=== PATIENT | female | born 1995 | race Caucasian/White ===

== ENCOUNTER 2023-02-16 08:15 | Emergency (ER) | payer BC ==
[2023-02-16] MEDS ORDERED: LACTATED RINGERS SOLUTION 1000 ML INFUS.BAG IV ONE (08:45)
[2023-02-16] MEDS ORDERED: FAMOTIDINE 20 MG/50 ML IVPB 20 MG/50 ML MG IVPB ONE ×2 (08:45→08:58)
[2023-02-16] MEDS ORDERED: ACETAMINOPHEN 1000 MG/100 ML BAG IVPB ONE (08:45)
[2023-02-16] MEDS ORDERED: ONDANSETRON 4 MG/2 ML VIAL IVPUSH ONE ×3 (08:45→14:02)
[2023-02-16] MEDS ORDERED: ACETAMINOPHEN INJECTION 100 ML IVPB ONE (08:58)
[2023-02-16] MEDS ORDERED: ONDANSETRON 4 MG/2 ML VIAL ONE ×2 (08:59→12:28)
[2023-02-16 09:02] VITALS: TEMP 97.9; BMI 30.4
[2023-02-16 09:06] LABS: HCG,QUALITATIVE URINE Negative
[2023-02-16 09:12] LABS: HEMATOCRIT 45.8 % (32.4-45.2); HEMOGLOBIN 15.8 G/dL (10.7-15.3); MCH 30.9 pg (25.7-33.7); MCHC 34.5 g/dl (32.0-36.0); MEAN CELL VOLUME 89.5 fl (80-96); MEAN PLT VOLUME 8.8 fl (7.5-11.1); PLATELET COUNT 200.6 10^3/uL (134-434); RBC 5.12 10^6/uL (3.60-5.2); RDW 13.3 % (11.6-15.6); WHITE BLOOD COUNT 12.1 10^3/uL (4.0-10.8)
[2023-02-16 09:16] LABS: EPITHELIAL CELLS MANY /hpf
[2023-02-16 09:21] LABS: ALBUMIN 4.6 g/dl (3.4-5.0); BLOOD UREA NITROGEN 11.6 mg/dl (7-18); CALCIUM 9.5 mg/dl (8.5-10.1); CREATININE 0.8 mg/dl (0.6-1.3); POTASSIUM 3.7 mmol/L (3.5-5.1); SGOT/AST 16.6 U/L (15-37); SGPT/ALT 28.9 U/L (7-52)
[2023-02-16 09:28] LABS: PLATELET ESTIMATE ADEQUATE
[2023-02-16 10:22] LABS: BILIRUBIN,TOTAL 0.4 mg/dL (0.2-1)
[2023-02-16] MEDS ORDERED: morphine CARPU-JECT 4 MG/1 ML DISP.SYRIN IVPUSH ONE (12:25)
[2023-02-16] MEDS ORDERED: morphine SULFATE 4 MG/ML VIAL ONE (12:27)
[2023-02-16 12:41] VITALS: BP 143/82; PULSE 100; RESP 24
[2023-02-16] MEDS ORDERED: METOCLOPRAMIDE HCL INJECTION 10 MG/2 ML VIAL IVPUSH ONE (14:06)
[2023-02-16] MEDS ORDERED: METOCLOPRAMIDE HCL INJECTION 10 MG/2 ML VIAL ONE (14:15)
== END 2023-02-16 15:38 | disposition home or self-care (01) ==
LOC: FER 08:15
PROC: 3E033GC Introduction of Other Therapeutic Substance into Peripheral Vein, Percutaneous Approach (ICD-10-PCS; principal; 2023-02-16)
PROC: 3E033GC Introduction of Other Therapeutic Substance into Peripheral Vein, Percutaneous Approach (ICD-10-PCS; 2023-02-16)
PROC: 3E033GC Introduction of Other Therapeutic Substance into Peripheral Vein, Percutaneous Approach (ICD-10-PCS; 2023-02-16)
PROC: 3E033GC Introduction of Other Therapeutic Substance into Peripheral Vein, Percutaneous Approach (ICD-10-PCS; 2023-02-16)
PROC: 3E033GC Introduction of Other Therapeutic Substance into Peripheral Vein, Percutaneous Approach (ICD-10-PCS; 2023-02-16)
PROC: 3E033NZ Introduction of Analgesics, Hypnotics, Sedatives into Peripheral Vein, Percutaneous Approach (ICD-10-PCS; 2023-02-16)
DX: R10.11 Right upper quadrant pain (principal); R11.2 Nausea with vomiting, unspecified
CPT/HCPCS: 36415; 74177-TC; 76705-TC; 80053; 81003; 81015; 82962; 83690; 84703; 85027; 87086; 99285-25; Q9967

== ENCOUNTER 2023-02-17 07:45 | Emergency (ER) | payer BC ==
[2023-02-17 08:04] VITALS: RESP 17; BMI 30.4
[2023-02-17] MEDS ORDERED: FAMOTIDINE 10 MG TABLET PO ONE (08:11)
[2023-02-17] MEDS ORDERED: PANTOPRAZOLE 40 MG TABLET PO ONE ×2 (08:11→08:17)
[2023-02-17] MEDS ORDERED: FAMOTIDINE 20 MG TABLET ONE (08:17)
[2023-02-17] MEDS ORDERED: FAMOTIDINE 20 MG TABLET PO ONE (08:17)
[2023-02-17 08:21] VITALS: BP 117/78; PULSE 80; TEMP 98.2
== END 2023-02-17 08:44 | disposition home or self-care (01) ==
LOC: FER 07:45
DX: R10.9 Unspecified abdominal pain (principal); R11.2 Nausea with vomiting, unspecified
CPT/HCPCS: 99283-25

== ENCOUNTER 2023-03-29 09:11 | Day surgery (SDC) | payer BC ==
[2023-03-25 16:18] VITALS: BMI 30.4
[2023-03-29 09:35] VITALS: PULSE 86
[2023-03-29 10:13] VITALS: RESP 18; TEMP 97.7
[2023-03-29 10:49] VITALS: BP 135/81
== END 2023-03-29 10:51 | disposition home or self-care (01) ==
LOC: FASU-ENDO 09:11
PROVIDERS: ATTEND Internal Medicine Gastroenterology
PROC: 0DB78ZX Excision of Stomach, Pylorus, Via Natural or Artificial Opening Endoscopic, Diagnostic (ICD-10-PCS; 2023-03-29)
PROC: 0DB68ZX Excision of Stomach, Via Natural or Artificial Opening Endoscopic, Diagnostic (ICD-10-PCS; 2023-03-29)
PROC: 0DB48ZX Excision of Esophagogastric Junction, Via Natural or Artificial Opening Endoscopic, Diagnostic (ICD-10-PCS; 2023-03-29)
PROC: 0DB98ZX Excision of Duodenum, Via Natural or Artificial Opening Endoscopic, Diagnostic (ICD-10-PCS; principal; 2023-03-29 09:53)
DX: K29.70 Gastritis, unspecified, without bleeding (principal); K20.90 Esophagitis, unspecified without bleeding
CPT/HCPCS: 81025; 88305-TC; 88342-TC

== ENCOUNTER 2023-10-01 07:57 | Emergency (ER) | payer BC ==
[2023-10-01 08:54] VITALS: BP 147/95; PULSE 97; RESP 18; TEMP 97.8; BMI 33.4
[2023-10-01] MEDS: SODIUM CHLORIDE 1,000 ML IV ONE (09:04)
[2023-10-01 09:15] LABS: HEMATOCRIT 44.7 % (32.4-45.2); HEMOGLOBIN 15.1 G/dL (10.7-15.3); MCH 30.2 pg (25.7-33.7); MCHC 33.8 g/dl (32.0-36.0); MEAN CELL VOLUME 89.4 fl (80-96); PLATELET COUNT 219.1 10^3/uL (134-434); RDW 13.6 % (11.6-15.6); WHITE BLOOD COUNT 6.4 10^3/uL (4.0-10.8)
[2023-10-01 09:26] LABS: ALBUMIN 4.6 g/dl (3.4-5.0); BILIRUBIN,TOTAL 0.6 mg/dl (0.2-1); CALCIUM 9.7 mg/dl (8.5-10.1); CREATININE 0.8 mg/dl (0.6-1.3); POTASSIUM 3.9 mmol/L (3.5-5.1); TOT PROT 7.3 g/dl (6.4-8.2)
[2023-10-01 09:27] LABS: PLATELET ESTIMATE ADEQUATE
[2023-10-01 10:06] LABS: HCG,QUALITATIVE URINE Negative
[2023-10-01 10:39] LABS: EPITHELIAL CELLS 21-50 /hpf
== END 2023-10-01 10:43 | disposition home or self-care (01) ==
LOC: FER 07:57
PROC: 3E0337Z Introduction of Electrolytic and Water Balance Substance into Peripheral Vein, Percutaneous Approach (ICD-10-PCS; principal; 2023-10-01)
DX: E16.2 Hypoglycemia, unspecified (principal)
CPT/HCPCS: 36415; 80053; 81003; 81015; 82962; 84703; 85027; 99284-25